=== PATIENT | male | born 2000 | race Caucasian/White ===

== ENCOUNTER 2022-06-05 15:06 | Emergency (ER) | payer OTHER, SELFPAY ==
[2022-06-05 15:26] VITALS: BP 180/67; PULSE 130; RESP 16; TEMP 37.2; O2SAT 99
[2022-06-05 15:30] VITALS: BP 148/90; PULSE 98
--- NOTE | 2022-06-05 15:44 | ED.URI ---
HPI - URI/Sore Throat General Chief Complaint: Upper Respiratory Infection Stated Complaint: sore throat, vomitting, headache, fatigue Time Seen by Provider: 06/05/22 15:44 Source: patient and RN notes reviewed Mode of arrival: ambulatory Limitations: no limitations History of Present Illness HPI Narrative: 21 y/o male presented for c/o right and mid lower abdominal pain with an episode of vomiting and fever today. Endorses recent URI symptoms that have persisted for 5 days. He was seen at outside urgent care, tested negative for covid and strep. Rates pain 03/30. Related Data Home Medications Medication Instructions Recorded Confirmed oxcarbazepine 300 mg 300 mg PO DAILY 06/05/22 06/05/22 tablet,extended release 24 hr Allergies Allergy/AdvReac Type Severity Reaction Status Date / Time No Known Allergies Allergy Verified 06/05/22 16:39 Review of Systems Review of Systems: CONSTITUTIONAL: Denies body aches, fever, chills ENT: Denies rhinorrhea, congestion CARDIOVASCULAR: Denies chest pain, palpitations, or edema. RESPIRATORY: Denies cough or dyspnea. GASTROINTESTINAL: Endorses abdominal pain, Denies hematochezia, melena, hematemesis GENITOURINARY: Denies dysuria, hematuria, or CVA tenderness. SKIN: Denies rash, itching, or wounds. MUSCULOSKELETAL: Denies back pain, joint pain, or myalgia. NEUROLOGIC: Denies headache, numbness, tingling, or weakness. All systems reviewed & are unremarkable except as noted in HPI and below PMFSH Comments At time of signature, I have reviewed and agree with nursing past medical, surgical, social and family history unless otherwise noted. Please see nursing chart for further information. There is no relevant family history pertinent to the presenting complaint Exam Narrative: GENERAL: ill-appearing, nontoxic EYES: EOMI. Conjunctivae normal. ENT: Mucous membranes pink and moist. CHEST: No respiratory distress. Clear to auscultation. HEART: Regular rate and rhythm. ABDOMEN: abd soft, nondistended, normal active bowel sounds. Tender abdomen RLQ No guarding SKIN: Warm, dry, no rash. Capillary refill normal. Normal skin turgor. NEURO: No focal deficits. Alert and oriented x3. Course Course Emergency Course: Patient is aware of diagnosis, understands and agrees to treatment plan. Anticipatory guidance given. Portions of this record may have been created with voice recognition software Level of Care: Express Care Visit Vital Signs Vital signs: Vital Signs Temperature 98.9 F 06/05/22 15:26 Pulse Rate 130 H 06/05/22 15:26 Respiratory Rate 16 06/05/22 15:26 Blood Pressure 180/67 H 06/05/22 15:26 Pulse Oximetry 99 06/05/22 15:26 Oxygen Delivery Room Air 06/05/22 15:26 Temperature 98.9 F 06/05/22 15:26 Pulse Rate 98 06/05/22 15:30 Respiratory Rate 16 06/05/22 15:26 Blood Pressure 148/90 H 06/05/22 15:30 Pulse Oximetry 99 06/05/22 15:26 Oxygen Delivery Room Air 06/05/22 15:26 Transfer Transfered to: [facility] Transportation: Other (Private vehicle) Transfer rationale: Pt is agreeable to transfer for further evaluation of the right lower quadrant abdominal pain and vomiting. Requests transfer to [facility] in [place] via private vehicle. Risks of transportation reviewed with pt including injury, worsening of condition and . v/u. Report called to hospital, spoke with Lina TORRES, Dr Muñoz accepting physician. Pt is in stable condition at time of transfer. Advised to remain NPO and go directly to the hospital. MDM - URI/Sore Throat MDM Narrative Medical decision making narrative: Reports umbilical and RLQ abdominal pain with fever and vomiting. Advised ER transfer. Differential Diagnosis Differential diagnosis: Likely other (appendicitis, biliary colic, gastroenteritis, constipation) Discharge Plan Discharge Clinical Impression: Abdominal pain, acute, right lower quadrant Patient Disposit
== END 2022-06-05 16:10 | disposition short-term general hospital (02) ==
PROVIDERS: Emergency Provider Nurse Practitioner Family
DX: R10.31 Right lower quadrant pain (principal)
CPT/HCPCS: 99202; G0463